=== PATIENT | male | born 2000 | race Caucasian/White ===

== ENCOUNTER 2020-09-04 14:28 | Outpatient (REF) | payer OTHER, SELFPAY ==
[2020-09-04 18:20] LABS: Alanine Aminotransferase 14 U/L (0-40); Albumin Level 4.9 g/dL (3.5-5.0); Alkaline Phosphatase 81 U/L (39-117); Anion Gap 13 (12-20); Aspartate Amino Transferase 12 U/L (5-37); Bilirubin Total 1.1 mg/dL (0.0-1.0); Blood Urea Nitrogen 17 mg/dL (9-16); Calcium 9.5 mg/dL (8.4-10.2); Carbon Dioxide 25 mmol/L (22-29); Chloride 104 mmol/L (96-108); Estimated Glomerular Filt Rate > 60; Glucose Random 76 mg/dL (60-115); Potassium 4.6 mmol/l (3.3-5.1); Sodium 137 mmol/L (135-145); Total Protein 7.5 g/dL (6.5-8.0)
[2020-09-04 18:40] LABS: Thyroid Stimulating Hormone 0.71 uIU/mL (0.32-4.0)
== END 2020-09-04 14:29 | disposition home or self-care (01) ==
LOC: HO.MANLDS 14:28
PROVIDERS: PCP Internal Medicine; Visit Provider Internal Medicine
DX: F41.9 Anxiety disorder, unspecified (principal)
CPT/HCPCS: 80053; 84443

== ENCOUNTER 2021-02-25 10:11 | Outpatient (REF) | payer OTHER, SELFPAY ==
[2021-02-25 11:25] LABS: MANUAL DIFF FLAG NO
[2021-02-25 11:36] LABS: Basophils Percent Auto 0.5 % (0-2); Eosinophils Absolute Auto 0.2 X10*3/uL (0.0-0.4); Eosinophils Percent Auto 2.8 % (0-4); Hematocrit 44.5 % (42-52); Imm Gran Abs Auto 0.01 X10*3/uL (0.00-0.03); Imm Gran Pct Auto 0.2 % (0.0-0.4); Lymphocytes Absolute Auto 2.1 X10*3/uL (1.2-4.9); Lymphocytes Percent Auto 35.2 % (20-40); Mean Corpuscular HGB Conc 33.7 g/dl (31.0-36.0); Mean Corpuscular Hemoglobin 29.4 pg (27.0-33.0); Mean Corpuscular Volume 87.1 fL (80-98); Mean Platelet Volume 11.1 fL (9.4-12.4); Monocytes Absolute Auto 0.7 X10*3/uL (0.1-1.2); Monocytes Percent Auto 11.2 % (2-11); Neutrophils Percent Auto 50.1 % (45-73); Platelet Count 233 X10*3/uL (160-400); Red Blood Count 5.11 X10*6/uL (4.60-5.80)
[2021-02-25 11:55] LABS: Alanine Aminotransferase 16 U/L (0-40); Albumin Level 4.5 g/dL (3.5-5.0); Alkaline Phosphatase 85 U/L (39-117); Anion Gap 13 (12-20); Aspartate Amino Transferase 17 U/L (5-37); Blood Urea Nitrogen 16 mg/dL (9-16); Calcium 9.6 mg/dL (8.4-10.2); Carbon Dioxide 27 mmol/L (22-29); Chloride 103 mmol/L (96-108); Estimated Glomerular Filt Rate > 60; Glucose Fasting 84 mg/dL (60-99); Potassium 4.6 mmol/L (3.3-5.1); Sodium 138 mmol/L (135-145)
[2021-02-25 12:06] LABS: Thyroid Stimulating Hormone 0.75 uIU/mL (0.32-4.0)
[2021-03-06 11:47] LABS: Testosterone, Free 91.5 pg/mL (35.0-155.0); Testosterone, Total 405 ng/dL (250-1100)
== END 2021-02-25 10:12 | disposition home or self-care (01) ==
LOC: HO.MANLDS 10:11
PROVIDERS: PCP Internal Medicine; Visit Provider Internal Medicine
DX: I10 Essential (primary) hypertension (principal)
CPT/HCPCS: 36415; 80053; 84402; 84403; 84443; 85025

== ENCOUNTER 2021-04-11 12:04 | Outpatient (REF) | payer OTHER, SELFPAY ==
[2021-04-16 16:37] LABS: Testosterone, Total 301 ng/dL (250-1100)
== END 2021-04-11 12:05 | disposition home or self-care (01) ==
LOC: HO.MANLDS 12:04
PROVIDERS: PCP Internal Medicine; Visit Provider Internal Medicine
DX: R53.83 Other fatigue (principal)
CPT/HCPCS: 36415; 84403

== ENCOUNTER 2021-05-14 11:20 | Outpatient (REF) | payer OTHER, SELFPAY ==
[2021-05-19 15:06] LABS: Testosterone, Free 68.2 pg/mL (35.0-155.0); Testosterone, Total 289 ng/dL (250-1100)
== END 2021-05-14 11:21 | disposition home or self-care (01) ==
LOC: HO.MANLDS 11:20
PROVIDERS: PCP Internal Medicine; Visit Provider Internal Medicine
DX: R68.82 Decreased libido (principal)
CPT/HCPCS: 36415; 84402; 84403

== ENCOUNTER 2021-06-18 11:40 | Outpatient (REF) | payer OTHER, SELFPAY ==
[2021-06-23 12:16] LABS: Testosterone, Free 90.3 pg/mL (35.0-155.0); Testosterone, Total 422 ng/dL (250-1100)
== END 2021-06-18 11:41 | disposition home or self-care (01) ==
LOC: HO.MANLDS 11:40
PROVIDERS: PCP Internal Medicine; Visit Provider Internal Medicine
DX: R68.82 Decreased libido (principal)
CPT/HCPCS: 36415; 84402; 84403

== ENCOUNTER 2021-09-27 09:47 | Emergency (ER) | payer OTHER, SELFPAY ==
[2021-09-27 09:58] VITALS: BP 157/86; PULSE 122; RESP 16; TEMP 36.2; O2SAT 97; BMI 30.4
[2021-09-27 10:26] LABS: IDNOW Serial# 9DD0AD1C; Strep A Nucleic Acid Negative (Negative)
--- NOTE | 2021-09-27 10:33 | ED_ITS ---
HPI - URI/Sore Throat General Chief Complaint: Upper Respiratory Symptoms Stated Complaint: strep throat Time Seen by Provider: 09/27/21 10:30 History of Present Illness HPI Narrative: Patient complains of sore throat for 2 days, he is able to swallow but it is painful, not sure if he has had a fever, no headache no runny nose no cough no nausea von Related Data Previous Rx's Medication Instructions Recorded azithromycin 250 mg tablet 250 mg PO DAILY 4 Days #4 tab 09/27/21 ibuprofen 600 mg tablet 600 mg PO Q6H PRN #20 tab 09/27/21 Allergies Allergy/AdvReac Type Severity Reaction Status Date / Time Penicillins Allergy Unknown Verified 09/27/21 09:58 Review of Systems Review of Systems: Positive for sore throat Negatives are no fever no chills no dizziness no weakness no headache no neck pain no stiff neck no chest pain no shortness of breath no nausea or vomiting no cough no rash no abdominal pain Yes all other systems are reviewed and are negative [facility] Past Medical History Source: nursing notes reviewed Medical History Acid reflux Anxiety Bronchitis HTN (hypertension) Social History Social History Advance Directives: No Advance Directives Information Provided: Yes Physical Exam Vital Signs: Vital Signs: Last Vital Signs Temp 97.2 F 09/27/21 09:58 Pulse 122 H 09/27/21 09:58 Resp 16 09/27/21 09:58 BP 157/86 H 09/27/21 09:58 Pulse Ox 97 09/27/21 09:58 BMI result Body Mass Index 30.4 General appearance comfortable relaxed no distress The ears no redness no discharge The sinuses nontender The pharynx has moist mucous membranes, voice is normal, uvula is midline there is no trismus there is redness swelling with bilateral swollen symmetric tonsils and exudate bilaterally, voice is normal The neck is supple with some anterior lymphadenopathy Chest is clear to auscultation bilateral Heart no murmur Abdomen soft nontender Extremities full range of motion x4 Course Course Course Narrative: Both rapid strep and COVID testing were negative, but patient has had strep several times before and was sure he had strep and so was given an antibiotic Zithromax as he is allergic to penicillin His blood pressure was elevated and he was informed of this and said he would follow with his doctor he does have pre-existing high blood pressure history MDM - URI/Sore Throat Lab Data Labs: Lab Results 09/27/21 09/27/21 Range/Units 10:07 10:07 COVID-19 ([facility]) Negative (Negative) COVID-19 Clin Com See Note S. pyogenes GrpA JAD Negative (Negative) Discharge Plan Discharge Clinical Impression: Pharyngitis Patient Disposition: Home, Self-Care Additional Instructions: Your COVID test was negative We gave 1 dose of steroid for the sore throat and Zithromax is the antibiotic Return any time any worse condition or any concerns Prescriptions: New azithromycin 250 mg tablet 250 mg PO DAILY 4 Days Qty: 4 RF: 0 ibuprofen 600 mg tablet 600 mg PO Q6H PRN (Reason: fever or pain) Qty: 20 RF: 0
[2021-09-27 10:46] LABS: COVID-19 Test Negative (Negative); IDNOW Serial# 9DD0AD1C
[2021-09-27] MEDS: dexAMETHasone 2 MG TABLET 10 MG PO (11:01)
[2021-09-27] MEDS: Azithromycin 500 MG TABLET PO (11:01)
[2021-09-27] MEDS: Ibuprofen 600 MG TABLET PO (11:01)
== END 2021-09-27 11:07 | disposition home or self-care (01) ==
PROVIDERS: Emergency Provider Emergency Medicine Emergency Medical Services; PCP Internal Medicine
DX: J02.9 Acute pharyngitis, unspecified (principal); I10 Essential (primary) hypertension; Z20.822 Contact with and (suspected) exposure to COVID-19; Z88.0 Allergy status to penicillin
CPT/HCPCS: 36415; 87635; 87651; 99283; 99284; J8540

== ENCOUNTER 2021-12-31 12:07 | Outpatient (REF) | payer OTHER, SELFPAY ==
[2022-01-06 08:56] LABS: Testosterone, Total 255 ng/dL (250-1100)
== END 2021-12-31 12:08 | disposition home or self-care (01) ==
LOC: HO.MANLDS 12:07
PROVIDERS: PCP Internal Medicine; Visit Provider Internal Medicine
DX: R53.83 Other fatigue (principal)
CPT/HCPCS: 36415; 84403

== ENCOUNTER 2022-07-03 16:18 | Outpatient (REF) | payer OTHER, SELFPAY ==
[2022-07-03 18:54] LABS: Alanine Aminotransferase 99 U/L (0-40); Albumin Level 4.8 g/dL (3.5-5.0); Alkaline Phosphatase 96 U/L (39-117); Anion Gap 18 (12-20); Aspartate Amino Transferase 118 U/L (5-37); Bilirubin Total 0.5 mg/dL (0.0-1.0); Blood Urea Nitrogen 22 mg/dL (9-16); Calcium 9.9 mg/dL (8.4-10.2); Carbon Dioxide 25 mmol/L (22-29); Chloride 104 mmol/L (96-108); Estimated Glomerular Filt Rate > 60; Glucose Random 104 mg/dL (60-115); Potassium 4.2 mmol/L (3.3-5.1); Sodium 143 mmol/L (135-145); Total Protein 7.6 g/dL (6.5-8.0)
[2022-07-08 00:37] LABS: Testosterone, Total 242 ng/dL (250-1100)
== END 2022-07-03 16:19 | disposition home or self-care (01) ==
LOC: HO.MANLDS 16:18
PROVIDERS: Visit Provider Internal Medicine
DX: R53.83 Other fatigue (principal)
CPT/HCPCS: 36415; 80053; 84403

== ENCOUNTER 2022-07-10 14:53 | Outpatient (REF) | payer OTHER, SELFPAY ==
[2022-07-14 21:22] LABS: Testosterone, Total 268 ng/dL (250-1100)
== END 2022-07-10 14:54 | disposition home or self-care (01) ==
LOC: HO.MANLDS 14:53
PROVIDERS: Visit Provider Internal Medicine
DX: R79.89 Other specified abnormal findings of blood chemistry (principal)
CPT/HCPCS: 36415; 84403

== ENCOUNTER 2022-11-18 13:49 | Outpatient (REF) | payer OTHER, SELFPAY ==
[2022-11-29 10:58] LABS: Testosterone, Total 270 ng/dL (250-1100)
== END 2022-11-18 13:50 | disposition home or self-care (01) ==
LOC: HO.MANLDS 13:49
PROVIDERS: Visit Provider Internal Medicine
DX: R53.83 Other fatigue (principal)
CPT/HCPCS: 36415; 84403

== ENCOUNTER 2023-05-04 13:34 | Outpatient (REF) | payer OTHER, SELFPAY ==
[2023-05-11 10:33] LABS: Testosterone, Total 242 ng/dL (250-1100)
== END 2023-05-04 13:35 | disposition home or self-care (01) ==
LOC: HO.MANLDS 13:34
PROVIDERS: Visit Provider Internal Medicine
DX: R53.83 Other fatigue (principal)
CPT/HCPCS: 36415; 84403

== ENCOUNTER 2023-05-14 14:14 | Outpatient (REF) | payer OTHER, SELFPAY ==
[2023-05-14 17:44] LABS: MANUAL DIFF FLAG NO
[2023-05-14 17:57] LABS: Basophils Absolute Auto 0.1 X10*3/uL (0.0-0.2); Basophils Percent Auto 0.8 % (0-2); Eosinophils Absolute Auto 0.3 X10*3/uL (0.0-0.4); Eosinophils Percent Auto 3.1 % (0-4); Hematocrit 50.5 % (42.0-52.0); Hemoglobin 17.2 g/dl (14.0-18.0); Imm Gran Abs Auto 0.05 X10*3/uL (0.00-0.03); Imm Gran Pct Auto 0.5 % (0.0-0.4); Lymphocytes Absolute Auto 2.9 X10*3/uL (1.2-4.9); Lymphocytes Percent Auto 31.1 % (20-40); Mean Corpuscular HGB Conc 34.1 g/dl (31.0-36.0); Mean Corpuscular Hemoglobin 30.4 pg (27.0-33.0); Mean Corpuscular Volume 89.4 fL (80.0-98.0); Mean Platelet Volume 11.8 fL (9.4-12.4); Monocytes Absolute Auto 0.9 X10*3/uL (0.1-1.2); Monocytes Percent Auto 9.5 % (2-11); Neutrophils Absolute Auto 5.1 x10*3/uL (2.0-8.3); Platelet Count 244 X10*3/uL (160-400); Red Blood Count 5.65 X10*6/uL (4.60-5.80); Red Cell Distribution Width 12.1 % (11.0-16.0); White Blood Count 9.3 X10*3/uL (4.8-10.8)
[2023-05-17 01:54] LABS: Follicle Stimulating Hormone 0.9 mIU/mL (1.6-8.0); Lutenizing Hormone 1.7 mIU/mL (1.5-9.3); Prolactin 8.6 ng/mL (2.0-18.0); Sex Hormone Binding Globulin 16 nmol/L (10-50)
[2023-05-22 22:43] LABS: Estradiol Free 0.71 pg/mL; Estradiol, Ultrasensitive 31 pg/mL (< OR = 29)
[2023-06-10 14:44] LABS: Testosterone, Total 283 ng/dL (250-1100)
== END 2023-05-14 14:15 | disposition home or self-care (01) ==
LOC: HO.MANLDS 14:14
PROVIDERS: Visit Provider Internal Medicine
DX: E29.1 Testicular hypofunction (principal)
CPT/HCPCS: 36415; 82670; 82681; 83001; 83002; 84146; 84270; 84402; 84403; 85025

== ENCOUNTER 2024-03-08 15:46 | Outpatient (REF) | payer OTHER, SELFPAY ==
[2024-03-08 19:24] LABS: Thyroid Stimulating Hormone 1.37 uIU/mL (0.32-4.0)
[2024-03-09 18:44] LABS: Thyroid Peroxidase Antibodies <1 IU/mL (<9)
[2024-03-09 23:14] LABS: Triiodothyronine T3 Free 4.1 pg/mL (2.3-4.2)
[2024-03-14 06:32] LABS: Thyroglobulin Antibodies <1 IU/mL (< or = 1)
== END 2024-03-08 15:47 | disposition home or self-care (01) ==
LOC: HO.MANLDS 15:46
PROVIDERS: Visit Provider Internal Medicine
DX: Z83.49 Family history of other endocrine, nutritional and metabolic diseases (principal)
CPT/HCPCS: 36415; 84443; 84481; 86376; 86800

== ENCOUNTER 2024-04-26 15:21 | Outpatient (REF) | payer OTHER, SELFPAY ==
[2024-05-01 00:43] LABS: Testosterone, Free 58.3 pg/mL (35.0-155.0); Testosterone, Total 259 ng/dL (250-1100)
== END 2024-04-26 15:22 | disposition home or self-care (01) ==
LOC: HO.MANLDS 15:21
PROVIDERS: Visit Provider Physician Assistant
DX: R89.1 Abnormal level of hormones in specimens from other organs, systems and tissues (principal)
CPT/HCPCS: 36415; 84402; 84403